=== PATIENT | male | born 1965 | race Caucasian/White ===

== ENCOUNTER → 2016-07-03 | Outpatient (CLI) | payer BC | LOC: RAD 15:33 | PROVIDERS: ATTEND Nurse Practitioner Family | DX: R10.9 Unspecified abdominal pain (principal) | CPT/HCPCS: 74177; 82565 ==

== ENCOUNTER → 2016-07-05 | Outpatient (CLI) | payer BC | LOC: RAD 08:10 | PROVIDERS: ATTEND Nurse Practitioner Family | DX: R13.10 Dysphagia, unspecified (principal) | CPT/HCPCS: 74220 ==